=== PATIENT | female | born 1960 | race Caucasian/White ===

== ENCOUNTER 2023-09-12 15:14 | Outpatient (CLI) | payer OTHER ==
[2023-09-12 16:49] LABS: #Basophils 0.09 10x3/uL (0.0-0.2); #Monocytes 0.54 10x3/uL (0.0-1.1); #Neutrophils 5.42 10x3/uL (1.5-8.4); %Basophils 1.1 % (0.0-2.0); %Eosinophils 1.2 % (0.0-6.0); %Lymphocytes 23.1 % (18.0-47.0); %Monocytes 6.7 % (0.0-10.0); %Neutrophils 67.7 % (40.0-75.0); Hematocrit 41.8 % (34.9-44.5); Hemoglobin 14.4 g/dL (12.0-15.5); Mean Corpuscular HGB CONC 34.4 g/dL (32.0-36.0); Mean Corpuscular Hemoglobin 32.5 pg (27.0-33.0); Mean Corpuscular Volume 94.4 fL (81.6-98.3); Mean Platelet Volume 11.4 fL (7.4-10.4); Platelet Count 245 10x3/uL (150-450); RBC Distribution Width 13.3 % (11.5-14.5); Red Blood Cell (RBC) Count 4.43 10x6/uL (3.90-5.03)
[2023-09-12 17:15] LABS: Anion Gap 14 mmol/L (10-20); BUN (Urea Nitrogen) 21 mg/dL (9.8-20.1); Calc. Creatinine Clearance 0 mL/min (70-130); Calcium 9.8 mg/dL (7.8-10.44); Carbon Dioxide 24 mmol/L (23-31); Chloride 106 mmol/L (98-107); Estimated GFR 90; Glucose 81 mg/dL (80-115); Potassium 4.3 mmol/L (3.5-5.1); Sodium 140 mmol/L (136-145)
== END 2023-09-12 15:15 | disposition home or self-care (01) ==
LOC: LABBT 15:14
PROVIDERS: ATTEND Orthopaedic Surgery
DX: Z01.818 Encounter for other preprocedural examination (principal); S83.242A Other tear of medial meniscus, current injury, left knee, initial encounter
CPT/HCPCS: 80048; 85025; 93005; 93010

== ENCOUNTER 2023-09-20 09:22 | Day surgery (SDC) | payer OTHER ==
[2023-09-12 15:34] VITALS: BMI 18.8
[2023-09-20] MEDS ORDERED: PROPOFOL 20 ML ONE ×2 (11:09→11:22)
[2023-09-20] MEDS ORDERED: fentaNYL 50 mcg/mL 1 mL Vial ONE ×2 (11:09→11:22)
[2023-09-20] MEDS ORDERED: Lidocaine 2% PF 5 ML VIAL ONE (11:09)
[2023-09-20] MEDS ORDERED: Bupivacaine PF 0.5% 30 ML VIAL ONE (11:10)
[2023-09-20] MEDS ORDERED: Clindamycin/D5W 600 mg/50 ml Premix Bag ONE (11:16)
[2023-09-20] MEDS ORDERED: Lidocaine 1% PF 5 ML VIAL ONE (11:22)
[2023-09-20] MEDS ORDERED: ePHEDrine Sulfate 50 MG/10 ML VIAL ONE (11:45)
[2023-09-20] MEDS ORDERED: Dexamethasone 4 mg/ml Vial ONE (11:56)
[2023-09-20] MEDS ORDERED: Ondansetron PF 4 MG/2 ML Vial ONE (11:56)
== END 2023-09-20 14:34 | disposition home or self-care (01) ==
LOC: SDC 09:22
PROVIDERS: ATTEND Orthopaedic Surgery
PROC: 0SBD4ZZ Excision of Left Knee Joint, Percutaneous Endoscopic Approach (ICD-10-PCS; principal; 2023-09-20)
DX: M23.307 Other meniscus derangements, unspecified meniscus, left knee (principal); M23.222 Derangement of posterior horn of medial meniscus due to old tear or injury, left knee; E78.00 Pure hypercholesterolemia, unspecified; Z90.710 Acquired absence of both cervix and uterus; Z98.890 Other specified postprocedural states; F17.200 Nicotine dependence, unspecified, uncomplicated; Z88.0 Allergy status to penicillin
CPT/HCPCS: J0665; J1100; J2001; J2405; J2704; J3010; J3490

== ENCOUNTER 2024-11-18 12:14 | Outpatient (CLI) | payer MEDICARE, OTHER | END 2024-11-18 12:15 | disposition home or self-care (01) | LOC: SCSRAD 12:14 | PROVIDERS: ATTEND Orthopaedic Surgery | DX: M54.50 Low back pain, unspecified (principal); M48.061 Spinal stenosis, lumbar region without neurogenic claudication; M41.56 Other secondary scoliosis, lumbar region; M47.816 Spondylosis without myelopathy or radiculopathy, lumbar region; M43.16 Spondylolisthesis, lumbar region | CPT/HCPCS: 72100 ==